=== PATIENT | female | born 1985 | race Caucasian/White ===

== ENCOUNTER 2017-02-24 16:31 | Emergency (ER) | payer MEDICAID, OTHER ==
[2017-02-24 17:23] VITALS: BMI 33.8
--- NOTE | 2017-02-24 17:25 | ED PDOC ---
HPI: Eye Injury/Pain Time Seen by Provider: 02/24/17 17:03 Chief Complaint (Provider): bilateral eye pain History Per: Patient History/Exam Limitations: no limitations Onset/Duration Of Symptoms: Days (x2, 02/23/17) Current Symptoms Are (Timing): Still Present Additional Complaint(s): Deedee Gates is a 31 year old female who presents to the emergency department with bilateral eye pain associated with crusty discharge and blurry vision which began yesterday. She states that she wears contact lens but had removed them when eyes became irritated. She denies any fever, chills, itchiness, or prior incidents. Patient denies foreign body sensation to eyes, denies any trauma. PMD: Sue Villa MD Past Medical History Reviewed: Historical Data, Nursing Documentation, Vital Signs - Medical History PMH: Asthma, Seizures - Surgical History Surgical History: No Surg Hx - Family History Family History: States: No Known Family Hx - Living Arrangements Living Arrangements: With Family - Social History Current smoker - smoking cessation education provided: Yes Alcohol: None Drugs: Denies - Home Medications Home Medications: Ambulatory Orders Medication Instructions Recorded Albuterol/Ipratropium [Combivent 1 puff JAY PRN PRN 11/23/15 Respimat] - Allergies Allergies/Adverse Reactions: Allergies Allergy/AdvReac Type Severity Reaction Status Date / Time pineapple Allergy Unknown RASH Uncoded 11/21/15 19:31 Review of Systems ROS Statement: Except As Marked, All Systems Reviewed And Found Negative Constitutional: Negative for: Fever Eyes: Positive for: Pain (bilaterally associated with crusty discharge), Vision Change (blurry), Conjunctivae Inflammation, Redness Neurological: Negative for: Headache, Dizziness Physical Exam - Reviewed Nursing Documentation Reviewed: Yes Vital Signs Reviewed: Yes - Physical Exam Appears: Positive for: Well, Non-toxic, Uncomfortable Skin: Negative for: Rash Eye Exam: Positive for: EOMI, PERRL, Conjunctival injection (moderate bilaterally with dried yellow discharge bilaterally), Other (no periorbital cellulitis). Negative for: Normal appearance, Periorbital swelling, Periorbital tenderness Neurologic/Psych: Positive for: Alert, Oriented, Gait (steady) - Laboratory Results Urine POC: Negative - ECG O2 Sat by Pulse Oximetry: 99 Pulse Ox Interpretation: Normal Medical Decision Making Medical Decision Making: Initial Impression: Bilateral conjunctivitis Initial Plan: * Motrin 600mg PO * Ciloxan 0.3% ophth SOLN * Urine Patient instructed on how to apply drops and was referred to ophthalmology on- call for follow-up. Scribe Attestation: Documented by Kierra Harding, acting as a scribe for Nona Meyers PA-C. Provider Scribe Attestation: All medical record entries made by the Scribe were at my direction and personally dictated by me. I have reviewed the chart and agree that the record accurately reflects my personal performance of the history, physical exam, medical decision making, and the department course for this patient. I have also personally directed, reviewed, and agree with the discharge instructions and disposition. Disposition - Clinical Impression Clinical Impression: Conjunctivitis - Patient ED Disposition Is Patient to be Admitted: No Counseled Patient/Family Regarding: Diagnosis, Need For Followup - Disposition Referrals: Franco Francois MD [Staff Provider] - Disposition: Routine/Home Disposition Time: 18:14 Condition: STABLE Additional Instructions: Apply 1 drop to each eye every 4 hours for 5 days. Take [id number] Tylenol or Advil for pain as needed. Follow up in 1-2 days with data analytics chief scientist. Do not use contact lenses until data analytics chief scientist states that you can resume use. Instructions: Conjunctivitis (ED)
[2017-02-24 17:26] VITALS: BP 131/88; PULSE 76; RESP 16; TEMP 98.1; O2SAT 99
[2017-02-24] MEDS ORDERED: Ciprofloxacin 0.3% OPTH SOLN OU STA (17:31)
== END 2017-02-24 18:15 | disposition home or self-care (01) ==
LOC: H.ER 16:31
DX: H10.9 Unspecified conjunctivitis (principal)

== ENCOUNTER 2018-05-17 10:31 | Inpatient (IN) | payer OTHER ==
[2018-05-17 11:00] VITALS: BMI 34.4
[2018-05-17] MEDS ORDERED: Lactated Ringer's 1,000 ML IV SCH ×2 (11:15→16:01)
[2018-05-17] MEDS ORDERED: Oxytocin 30 UNIT 30 UNITS/500 ML BAG IV ONE ×2 (12:34→16:01)
[2018-05-17] MEDS ORDERED: OXYTOCIN/0.9 % NS 20 UNIT/1,000 ML BAG IV SCH ×2 (12:45→16:01)
--- NOTE | 2018-05-17 13:25 | OBDS ---
MATERNAL INFORMATION Provider Comments: of live male over intact perineum, CLAUDIA followed by shoulders and rest of , mouth and nose suctioned on mother's chest, cord clamped and cut, cord blood obtained, fu ndus firm, ABL = 200mL, no lacerations noted, pt tolerated procedure well
--- NOTE | 2018-05-17 14:11 | US ---
Date of service: 05/17/2018 PROCEDURE: Third trimester ultrasound HISTORY: no care and in labor COMPARISON: None TECHNIQUE: Standard protocol for this study/examination. FINDINGS: Cephalic presentation. Anterior and fundal placenta. No evidence of abruption or previa Gestational age derived from LMP Cannot be ascertained based in the absence of a reliable/ known LMP Gestational age derived from the following biometric parameters 35 weeks 6 days. MELIZA 06/15/2018 Biparietal diameter 9.68 cm Head circumference 31.57 cm Abdominal circumference 30.47 cm Femur length 6.60 cm Estimated weight 2543 g Calculated cardiac rate 129 beats per min. Closed cervix IMPRESSION: Thirty-five weeks 6 days live intrauterine gestation. Gestational concordance cannot be established in the absence of reliable LMP.
[2018-05-17 15:07] LABS: BASO % 0.5 % (0.0-2.0); EOS # 0.1 K/uL (0.0-0.7); EOS % 1.1 % (0.0-4.0); HEMOGLOBIN 9.9 g/dL (12.0-16.0); LYMPH # 1.1 K/uL (1.0-4.3); LYMPH % 13.4 % (20.0-40.0); MEAN CELL VOLUME 72.4 fl (81.0-99.0); MEAN CORPUSCULAR HEMOGLOBIN 23.4 pg (27.0-31.0); MEAN CORPUSCULAR HGB CONC 32.4 g/dL (33.0-37.0); MEAN PLATELET VOLUME 10.1 fl (7.2-11.7); MONO # 0.4 K/uL (0.0-0.8); MONO % 5.4 % (0.0-10.0); NEUT # 6.4 K/uL (1.8-7.0); NEUT % 79.6 % (50.0-75.0); RBC 4.21 Mil/uL (3.80-5.20); RED CELL DISTRIBUTION WIDTH 16.6 % (11.5-14.5)
[2018-05-17 20:22] LABS: BARBITURATES, UR NEGATIVE (NEGATIVE); BENZODIAZEPINES, UR NEGATIVE (NEGATIVE); OPIATES, UR NEGATIVE (NEGATIVE); PHENCYCLIDINE, UR NEGATIVE (NEGATIVE)
[2018-05-17 22:24] LABS: RAPID PLASMA REAGIN NONREACTIVE (NONREACTIVE)
[2018-05-18 06:34] LABS: BASO % 0.5 % (0.0-2.0); EOS # 0.1 K/uL (0.0-0.7); EOS % 1.1 % (0.0-4.0); HEMOGLOBIN 8.6 g/dL (12.0-16.0); LYMPH # 1.6 K/uL (1.0-4.3); LYMPH % 18.2 % (20.0-40.0); MEAN CORPUSCULAR HEMOGLOBIN 23.4 pg (27.0-31.0); MEAN CORPUSCULAR HGB CONC 32.4 g/dL (33.0-37.0); MEAN PLATELET VOLUME 9.7 fl (7.2-11.7); MONO # 0.6 K/uL (0.0-0.8); MONO % 6.4 % (0.0-10.0); NEUT # 6.6 K/uL (1.8-7.0); NEUT % 73.8 % (50.0-75.0); RBC 3.7 Mil/uL (3.80-5.20); RED CELL DISTRIBUTION WIDTH 16.4 % (11.5-14.5); WHITE BLOOD COUNT 8.9 K/uL (4.8-10.8)
--- NOTE | 2018-05-18 10:46 | OBPPN ---
Datetime: 05/18/2018 05:41 PP Pain Prov: Within normal limits PP Nausea Prov: Denies PP Flatus Prov: No PP BM Prov: No PP Heart Prov: Normal PP Lungs Prov: Normal PP Abdomen/Uterus Prov: Normal PP Lochia Prov: Normal PP Extremities Prov: Normal PP C/S Incision Prov: Not Applicable PP Progress Prov: Normal PP Impression Prov: Normal progression PP Plan Prov: Continue present management; consult PP Progress Note Prov: PPD 1 S: 33 yo F . Seen and examined bedside. Patient reports mild pain since delivery, controlle d with pain medication. Has ambulated to the bathroom without dizziness. without issues . Lochia is similar in volume to a heavy menses. Denies passing gas and bowel movement. Denies fever/ chills, diarrhea, nausea/vomitting, CP/SOB, calf pain and lightheadedness. O: BP 137/57 , HR 69 , Tmax 98.6F Blood: O+, Antibody neg Rubella: unkown PE: GEN: A_O, Resting comfortably in bed HEENT: White sclera, oral mucosa moist Breast: Engorged Lungs: CTA B/L, no wheeze CVS: RRR, S1, S2 normal ABD: +BS, firm fundus @ umbilicus, soft Pelvic: Appropriate amount of lochia, no odor, minimal small clots Assessment:33 yo F on 05/17/18. Pt afebrile, tolerating pain with medication and larry ating oral intake of liquids and solids. Plan: Regular diet as tolerated OOB with caution Ibuprofen 600mg 1tab Q6h PO for mild pain Encourage and ambulation Iron: if h/h <10, take with Vit C Colace 100mg PO BID for constipation Simethicone 80mg BID for gas Rubella: immune Disposition: anticipate discharge to home on 05/19/18 with oob/ambulatory precaution. ----Yarely Russ, PGY1 Family Medicine OB Hospialist on-call...On i saw this patient...agree wtih PGY1 note MAHNDO IP PP Procedures: None Vital Signs Provider PP: Within Normal Limits
--- NOTE | 2018-05-19 11:57 | OBDCSUM ---
Datetime: 05/19/2018 11:55 Discharged to, Provider: Home Follow up at, Provider: care point Disch Instr Activity: Normal activity Disch Instr Diet: Regular Discharge Instructions, Provider: Routine instructions given Discharge Diagnosis, Provider: Term Delivered Follow up in weeks, Provider: 6 weeks Disch Referrals: None Contraception discussed, Prov: Yes Disch Activity Restrictions: No sexual activity; Nothing in vagina - [place], tampons, douche Contraception after Delivery: Undecided
[2018-05-19 23:48] VITALS: BP 123/79; PULSE 73; RESP 20; TEMP 98.3
== END 2018-05-19 16:00 | disposition home or self-care (01) | DRG 373 ==
LOC: H.EROB2 10:31 → H.L&D 10:51 → H.EROB2 11:00 → H.L&D 11:09 → H.OB/GYN 17:20
PROVIDERS: ADMIT Obstetrics & Gynecology; ATTEND Obstetrics & Gynecology
PROC: 10E0XZZ Delivery of Products of Conception, External Approach (ICD-10-PCS; principal; 2018-05-17)
DX: O80 Encounter for full-term uncomplicated delivery (principal); Z37.0 Single live birth; Z3A.39 39 weeks gestation of pregnancy